=== PATIENT | male | born 2000 | race Caucasian/White ===

== ENCOUNTER 2024-12-05 17:37 | Emergency (ER) | payer MEDICAID ==
[~2024-12-05] VITALS: Ht 188 cm; Wt 100.0 kg
--- NOTE | 2024-12-05 17:51 | Physician Documentation ---
History of Present Illness ~ Chief Complaint: ALOC Stated Complaint: ALTERED Time Seen by MD: 17:51 Source: patient, EMS HPI The patient presents by EMS with altered mental status. EMS reports that he came from a trailer home, where it smelled heavily of propane. He was found altered. He was placed on oxygen. Blood glucose was 70 and he was given oral glucose. During transport he did slowly seem to wake up and improve. The fire department came to the scene, and reportedly found an empty leaking propane tank inside. By time of my evaluation, the patient is awake and alert. He reports having a headache and mild nausea. He denies any other specific symptoms at this time. He denies any vision changes, recent illness or fevers, vomiting or diarrhea, abdominal pain, shortness of breath. He tells me that he does not really remember what happened today. He says he started to feel ill around mid day. He denies any substance use today. He denies any history of medical problems or medications. Review of Systems Constitutional: Denies: fever Neurological: Reports: headache, cognitive dysfunction Physical Exam Vital Signs: Temperature: 99.0, Source: Oral, Heart Rate: 78, Respiratory Rate: 18, BP: 140/78, Pulse Oximetry: 100, Weight: 100.000 Oxygen Flow Rate: 15.0 Physical Exam General: This is a healthy-appearing young man sitting in bed with a non-rebreather oxygen mask on HEENT: Atraumatic, pupils are equal, oropharynx appears dry Heart: Regular rate and rhythm, normal-appearing peripheral perfusion Lungs: Clear breath sounds bilateral, normal work of breathing, oxygen saturation 100% on non-rebreather oxygen Abdomen: Soft, nondistended, nontender all quadrants Extremities: Warm and well-perfused Neuro: Alert, oriented, does not currently appear confused Psychiatric: Calm and cooperative with exam Progress Results/Orders Results/Orders Orders - SYLVIE DELEON MD Abg (Arterial Blood Gas) (12/05/24 17:51) Cbc/Diff (12/05/24 17:51) CMP (12/05/24 17:51) Ethanol (12/05/24 18:03) Drug Screen, Urine (12/05/24 18:03) Vital Signs 12/05/24 17:42 Temp 99.0 Pulse 78 Resp 18 B/P (MAP) 140/78 Pulse Ox 100 O2 Flow Rate 15.0 Medical Decision Making Additional Information Differential includes carbon monoxide poisoning, other substance intoxication, dehydration, medication reaction, less likely intracranial hemorrhage or mass. Assessment The patient presents with altered mental status and a headache, in the setting of being found around a leaking propane tank. His presentation is very concerning for carbon monoxide poisoning. He is placed on oxygen by EMS and this was continued. He is given Toradol for his headache. Plan is for labs and ABG. The patient will be signed out at shift change to the oncoming ER provider, pending these tests and for further evaluation and treatment. Departure Impression: Primary Impression: Altered mental status Referrals: NO PRIMARY CARE PROVIDER (PCP) Signature Scribe Signature: na Attestation: SYLVIE Fleming MD December 05, 2024 17:51
[2024-12-05 18:12] LABS: ABG BASE EXCESS 2.5 mmol/L (-2.0-3.0); ABG HCO3 25.9 mmol/L (21.0-28.0); ABG OXYGEN SATURATION 99.7 % (94.0-98.0); ABG PCO2 (T) 36.6 mmHg (35.0-48.0); ABG PH (T) 7.468 (7.350-7.450); ABG PO2 (T) 413.5 mmHg (83.0-108.0); ALLEN'S TEST POSITIVE; FCOHb 0.1 % (0.5-1.5); FHHb 0.3 % (0.0-5.0); FLOW 15 L/min; FMetHb 0.3 % (0.0-1.5); FO2Hb 99.3 % (94.0-98.0); MODE MASK - NRB; PATIENT TEMPERATURE 37.2; TOTAL HEMOGLOBIN 14.6 G/dl (13.5-17.5)
[2024-12-05] MEDS: ketorolac trometh 15mg/ml vial 15 MG/ML ML IV ONE (18:21)
[2024-12-05 18:36] LABS: BASOPHILS % (AUTO) 0.3 % (0-1); EOSINOPHILS # (AUTO) 0.1 X10'3 (0-0.9); EOSINOPHILS % (AUTO) 0.6 % (0-6); HEMATOCRIT 41.3 % (42.0-52.0); HEMOGLOBIN 14.3 g/dl (14.0-17.9); LYMPHOCYTES # (AUTO) 1.3 X10'3 (1.1-4.8); LYMPHOCYTES % (AUTO) 12.6 % (21-51); MEAN CORPUSCULAR HEMOGLOBIN 32.3 PG (27.0-31.0); MEAN CORPUSCULAR HGB CONC 34.6 g/dL (33.0-36.5); MEAN CORPUSCULAR VOLUME 93.3 FL (78-98); MEAN PLATELET VOLUME 8.8 FL (7.4-10.4); MONOCYTES # (AUTO) 0.5 X10'3 (0-0.9); MONOCYTES % (AUTO) 5.4 % (2-12); NEUTROPHILS # (AUTO) 8.1 X10'3 (1.8-7.7); NEUTROPHILS % (AUTO) 81.1 % (42-75); PLATELET COUNT 290 X10'3 (140-440); RED BLOOD COUNT 4.43 X10'6 (4.70-6.10); RED CELL DISTRIBUTION WIDTH 12.8 % (11.5-14.5)
[2024-12-05 18:48] LABS: ALANINE AMINOTRANSFERASE 101 U/L (12-78); ALBUMIN 4.2 G/DL (3.4-5.0); ALBUMIN/GLOBULIN RATIO 1.4 (1.1-1.5); ALKALINE PHOSPHATASE 88 IU/L (46-116); ANION GAP 6 (8-16); ASPARTATE AMINO TRANSFERASE 40 U/L (10-37); BILIRUBIN,TOTAL 0.8 MG/DL (0.1-1.0); BLOOD UREA NITROGEN 8 MG/DL (7-18); BUN/CREATININE RATIO 8.4 (10.0-20.0); CHLORIDE 106 MMOL/L (99-107); CREATININE 0.95 MG/DL (0.60-1.10); GLUCOSE 116 MG/DL (70-104); POTASSIUM 3.7 MMOL/L (3.5-5.1); SODIUM 142 MMOL/L (135-145); TOTAL CARBON DIOXIDE 29.7 MMOL/L (24-32); TOTAL PROTEIN 7.2 G/DL (6.4-8.2); eCRCL 138 ML/MIN; eGFR > 90 ML/MIN
[2024-12-05 18:50] LABS: ETHANOL < 10 MG/DL (<10)
[2024-12-05 19:12] VITALS: BP 123/81; PULSE 73; RESP 16; TEMP 98.3; O2SAT 100
== END 2024-12-05 19:18 | disposition home or self-care (01) ==
LOC: ER 17:38
DX: R41.82 Altered mental status, unspecified (principal); R11.0 Nausea; R51.9 Headache, unspecified
CPT/HCPCS: 36415; 36600; 80053; 80320; 82803; 85018; 85025; 96374; 99283; J1885

== ENCOUNTER 2025-02-22 18:36 | Emergency (ER) | payer MEDICAID ==
[~2025-02-22] VITALS: Ht 188 cm; Wt 70.3 kg
[2025-02-22 19:06] VITALS: BP 125/65; PULSE 63; RESP 15; TEMP 96.3; O2SAT 98
== END 2025-02-22 21:39 | disposition left against medical advice (07) ==
LOC: ER 18:36
DX: R21 Rash and other nonspecific skin eruption (principal); Z53.21 Procedure and treatment not carried out due to patient leaving prior to being seen by health care provider